=== PATIENT | female | born 1965 | race Caucasian/White ===

== ENCOUNTER → 2018-02-11 15:36 | Outpatient (CLI) | payer BC, SELFPAY ==
--- NOTE | 2018-02-11 15:40 | MM_ITS ---
MM Dig screening mamm BI w/CAD CAD Screening COMPARISON: Digital mammograms with CAD 02/03/2017 INDICATION: There is a history of breast cancer patient's mother diagnosed at age 50. TECHNIQUE: Standard CC and MLO images were obtained. R2 CAD reviewed. FINDINGS: Prominent diffuse somewhat heterogenic fibroglandular densities are seen throughout both breasts. There is a mole marker right breast. There is no suspicious lesion and there are no suspicious microcalcifications. IMPRESSION: Stable exam no suspicious lesion seen recommend yearly follow-up BI-RADS Category: 1 Negative RECOMMENDED FOLLOW-UP: 1YR - 1 YEAR FOLLOW-UP (A letter has been sent to the patient regarding results of the study.)
== END ==
PROVIDERS: Family Provider Family Medicine; PCP Family Medicine; Visit Provider Family Medicine
DX: Z12.31 Encounter for screening mammogram for malignant neoplasm of breast (principal)
CPT/HCPCS: 77067

== ENCOUNTER → 2019-03-14 15:33 | Outpatient (CLI) | payer BC, SELFPAY ==
--- NOTE | 2019-03-14 15:40 | MM_ITS ---
PROCEDURE: MM DIG SCREENING MAMM BI W/CAD Patient Age:54Y CLINICAL INDICATION: SCREENING 54-year-old No hormones no new complaints. Family history mother with breast cancer: Age 50 COMPARISON: [facility] DIG MAMM-SCREEN [facility] from 02/22/2013 [facility] DIG MAMM-SCREEN [facility] from 03/01/2014 [facility] DIG MAMM-SCREEN [facility] from 03/06/2015 [facility] DIG MAMM-SCREEN [place] W/CAD from 02/03/2017 [facility] MM Dig screening mamm BI w/CAD from 02/11/2018 TECHNIQUE: Standard CC and MLO images were obtained. R2 CAD reviewed. Additional axillary CC views bilaterally included FINDINGS: overall moderate dense heterogeneous breast pattern, with the more pronounced, fairly dense breast tissue is seen towards upper-outer quadrant of both breast. Mammography is of decreased sensitivity in these areas of denser breast tissue but we see no significant new findings when compared to prior studies. No dominant nor suspicious. Mass lesion. No suspicious calcifications. No significant change Bilateral follow-up 1 year recommended IMPRESSION: Stable mammogram. No new areas of significant concern. Bilateral follow-up 1 year recommended. Moderately dense heterogeneous breast BI-RAD Category: 2 Benign Finding(s) FOLLOW-UP: 1YR 1 Year Follow-up (A letter has been sent to the patient regarding results of the study.) Dictated by: Nadine Coelho 03/14/2019 16:25 Electronically signed by Jg Villavicencio MD in [place] 03/17/2019 09:49
== END ==
PROVIDERS: PCP Family Medicine; Referring Provider Family Medicine; Visit Provider Family Medicine
DX: Z12.31 Encounter for screening mammogram for malignant neoplasm of breast (principal)
CPT/HCPCS: 77067

== ENCOUNTER → 2020-03-22 15:33 | Outpatient (CLI) | payer BC, SELFPAY ==
--- NOTE | 2020-03-22 15:36 | MM_ITS ---
PROCEDURE: MM DIG SCREENING MAMM BI W/CAD Digital Breast Tomosynthesis Included CLINICAL INDICATION: SCREENING There is a history of breast cancer patient's mother diagnosed at age 50. COMPARISON: MG [facility] DIG MAMM-SCREEN [facility] W/CAD from 02/03/2017 MG [facility] MM Dig screening mamm BI w/CAD from 02/11/2018 MG MM DIG SCREENING MAMM BI W/CAD from 03/14/2019 TECHNIQUE: Standard CC and MLO images and 3D Tomosynthesis was obtained. R2 CAD reviewed. FINDINGS: Moderate diffuse fibroglandular densities are seen in the central portions and upper outer quadrants of both breasts. Findings are bilateral and symmetrical. There is a tiny benign-appearing nodular density deep to the nipple left breast and only definitely seen with kadeem images on the CC projection. There is no suspicious lesion and no suspicious microcalcifications. IMPRESSION: Moderate diffuse breast density with no suspicious lesions seen BI-RAD Category: 2 Benign Finding(s) FOLLOW-UP: 1YR 1 Year Follow-up (A letter has been sent to the patient regarding results of the study.) Dictated by: Dr. Amarjit Burgess MD 03/23/2020 12:19 Dr. Amarjit Burgess MD in [place] 03/23/2020 12:19
--- NOTE | 2020-03-22 15:36 | US_ITS ---
PROCEDURE: US THYROID CLINICAL INDICATION: THYROID NODULE Right-sided thyroid nodule on physical exam COMPARISON: No exams were available for comparison FINDINGS: The right lobe is 3.8 x 1.2 x 0.9 cm. No nodules are evident. Homogeneous echogenicity. The left lobe is 2.9 x 1 x 1.1 cm. There is a 5 mm isoechoic nodule in the upper pole well-circumscribed wider than tall without calcifications IMPRESSION: 5 mm left thyroid nodule , TR level 3 less than 2.5 cm. Recommend six-month follow-up. Dictated by: Kavon Marcos MD 03/22/2020 18:16 Kavon Marcos MD in [place] 03/22/2020 18:16
== END ==
PROVIDERS: PCP Family Medicine; Visit Provider Family Medicine
DX: Z12.31 Encounter for screening mammogram for malignant neoplasm of breast (principal); E04.1 Nontoxic single thyroid nodule
CPT/HCPCS: 76536; 77063; 77067

== ENCOUNTER 2020-07-15 16:21 | Emergency (ER) | payer BC, SELFPAY ==
[2020-07-15 17:05] VITALS: BP 126/79; PULSE 68; RESP 19; TEMP 36.6; O2SAT 99; BMI 27.3
--- NOTE | 2020-07-15 17:46 | HMH.EDUTC ---
[facility] [place] Clinical Impression: Encounter for laboratory testing for COVID-19 virus Disposition: Home, Self-Care Condition on Discharge: Good Instructions: DI for COVID-19 (Suspected or Confirmed ), Coronavirus Disease 2019, Preventing the Spread of Coronavirus Discharge Instructions Additional Instructions: *Monitor Temp, Over the counter Motrin or Tylenol as directed/as needed Tylenol every 4 hours and Motrin every 6 hours (as long as your family doctor has told you that you can take it) for fever or pain. and straight to ER if unable to lower temp less than 101.0 after medication given Follow up IMMEDIATELY for new or worsening symptoms or no Noticeable improvement over the next 48-72 hours. 911 for difficulty breathing or swallowing You were tested for today for COVID19 your test result should be back in the next 24-48 hours, you may call to the [facility] to see if your test results are back in the next 48 hours [phone] [facility] hours are 9am-9pm You was given a handout with instructions for Self Quarantine and Self isolation for while you wait on test results and what to do if they are positive If you are positive the Health Dept will be contacting you also Referrals: Pro Boyd MD [Primary Care Provider] - As needed Forms: Work/School Release Time of Disposition: 17:47 Medical Decision Making - Ervin Inquiry Pt receiving controlled substance: No Ervin was queried for this patient: No Vital Signs: 07/15/20 17:05 Temperature 97.8 F Temperature Source Oral Pulse Rate [Right Brachial] 68 Respiratory Rate 19 Blood Pressure [Right Arm] 126/79 Blood Pressure Mean [Right Arm] 94 Blood Pressure Source [Right Arm] Automatic Cuff Blood Pressure Position [Right Arm] Sitting 02 Sat by Pulse Oximetry 99 Oxygen Delivery Method Room Air Orders (Tests/Meds): ORDERS Category Date Time Status Covid-19 Nasal PCR ([facility]) Routine Lab 07/15/20 17:06 Received [facility] [place] HPI - General Stated complaint: covid test Time Seen by Provider: 07/15/20 17:46 Mode of Arrival: Ambulatory Source of Information: Patient Limitations: No Limitations Description of Symptoms (Recalled from Triage Doc. by RN): COVID TEST D/T EXPOSURE; PATIENT C/O WEIRD TASTE IN MOUTH HEENT Symptoms (Recalled from RN notes): Yes Resp Symptoms (Recalled from RN notes): No Skin Symptoms (Recalled from RN notes): No MS Symptoms (Recalled from RN notes): No Functional Status (Recalled from RN notes): WNL - History of Present Illness Provider Complaint: Patient state that she has had a salty metalic taste on and off for a couple of weeks States that today her coworker called and told her that she tested positive for COVID so she came in to get tested Denies any other symptoms - Related Data Home Medications Medication Instructions Recorded Confirmed atorvastatin 10 mg tablet 10 mg PO DAILY 01/07/18 07/15/20 Allergies Allergy/AdvReac Type Severity Reaction Status Date / Time Penicillins Allergy Intermediate I-RASH Verified 06/21/19 07:28 - Worker's Comp Is this a Worker's Comp case?: No [facility] History - Hepatitis A Screen Drug use history?: No High risk sexual behaviors?: No History of sexually transmitted infection?: No Currently employed?: No Childcare worker?: No Do you have indoor plumbing?: Yes Do you have electricity?: Yes Attestation statement:: This patient has been screened for Hepatitis A risk factors. I have reviewed the patient's past medical history: Yes Medical History: Reports:: Hyperlipidemia Denies:: Cancer, Diabetes Mellitus Type 1, Diabetes Mellitus Type 2, Internal Pacemaker, MRSA, Seizures Other Surgeries: Yes: Colonoscopy, Other. No: Pacemaker Amputation: No Fractures: No Comment: wisdom teeth, bladder scope - Social History Smoking Status: Never smoker Alcohol Intake: never Substance Use Type: denies use Occupational Status: employed Housing: house Household Members: spouse Family Hx::
[2020-07-15 17:50] VITALS: BP 126/79; PULSE 68; RESP 19; TEMP 36.6; O2SAT 99
== END 2020-07-15 17:52 | disposition home or self-care (01) ==
PROVIDERS: Emergency Provider Nurse Practitioner; PCP Family Medicine
DX: Z20.822 Contact with and (suspected) exposure to COVID-19 (principal)
CPT/HCPCS: 99202; G0463; U0003

== ENCOUNTER → 2020-07-27 15:03 | Outpatient (CLI) | payer BC, SELFPAY ==
--- NOTE | 2020-07-27 15:08 | US_ITS ---
PROCEDURE: US THYROID CLINICAL INDICATION: THYROID NODULE Follow up Pt feels pressure COMPARISON: US US THYROID from 03/22/2020 FINDINGS: Right lobe: 1.0cm x 3.9cm x 1.0cm Left lobe: 0.9cm x 3.2cm x 1.3cm Isthmus: 3 mm in thickness unremarkable appearance Additional findings: A 5 mm slightly hypoechoic nodule is noted in the upper pole of the left lobe of the thyroid gland unchanged. No new nodules are evident. IMPRESSION: Stable nodule in the left lobe of the thyroid gland. Annual follow-up suggested. Dictated by: Kavon Marcos MD 07/28/2020 06:46 Kavon Marcos MD in [place] 07/28/2020 06:46
== END ==
PROVIDERS: PCP Family Medicine; Visit Provider Physician Assistant
DX: E04.1 Nontoxic single thyroid nodule (principal)
CPT/HCPCS: 76536

== ENCOUNTER → 2021-01-02 11:11 | Outpatient (CLI) | payer BC, SELFPAY ==
[2021-01-02 14:46] LABS: Basophils % 0.7 % (0.1-2.0); Eosinophils # 0.2 K/mm3 (0.0-0.4); Eosinophils % 2.6 % (0.1-12.0); Hematocrit 39.9 % (37.0-47.0); Hemoglobin 13.2 g/dL (12.2-16.2); Lymphocytes # 1.1 K/mm3 (0.7-4.5); Lymphocytes % 18.6 % (10-50); Mean Corpuscular HGB Conc 33.1 g/dL (31.8-35.4); Mean Corpuscular Hemoglobin 29.4 pg (27.0-31.2); Mean Corpuscular Volume 88.8 fl (81-99); Mean Platelet Volume 9.1 fl (7.4-10.4); Monocytes # 0.4 K/mm3 (0.1-1.0); Monocytes % 7.5 % (1.7-9.3); Neutrophils % 70.6 % (37.0-80.0); Platelet Count 248 K/mm3 (142-424); Red Cell Distribution Width 14.3 % (11.5-17.5); White Blood Count 5.7 K/mm3 (4.8-10.8)
== END ==
PROVIDERS: PCP Physician Assistant; Visit Provider Physician Assistant
DX: Z20.822 Contact with and (suspected) exposure to COVID-19 (principal)
CPT/HCPCS: 36415; 85025; U0003

== ENCOUNTER → 2021-01-29 16:02 | Outpatient (POV) | payer BC, SELFPAY | PROVIDERS: Visit Provider Dermatology | DX: Z00.00 Encounter for general adult medical examination without abnormal findings (principal) ==

== ENCOUNTER → 2021-04-22 16:55 | Outpatient (CLI) | payer BC, SELFPAY ==
--- NOTE | 2021-04-22 16:59 | MM_ITS ---
PROCEDURE INFORMATION: Exam: MG Bilateral Screening 3D Mammography Exam date and time: 04/22/2021 4:59 PM Age: 56 years old Clinical indication: Encounter for screening mammogram for malignant neoplasm of breast. Family history of breast carcinoma. TECHNIQUE: Imaging protocol: Bilateral screening tomosynthesis and 2D mammography including computer-aided detection (CAD) when performed. COMPARISON: 1. MG MM DIG SCREENING MAMM BI W/CAD 03/22/2020 3:49 PM 2. MG MM DIG SCREENING MAMM BI W/CAD 03/14/2019 4:15 PM 3. MG [facility] MM Dig screening mamm BI w/CAD 02/11/2018 4:10 PM FINDINGS: MAMMOGRAPHY: Breast composition: The breasts are heterogeneously dense, which may obscure small masses. Mass: No suspicious masses. Architectural distortion: No suspicious distortion. Calcifications: No suspicious calcifications. Asymmetric density: None. Skin thickening: None. Axillary adenopathy: None. IMPRESSION: 1. No mammographic evidence of malignancy. Annual screening is recommended unless otherwise clinically indicated. 2. Given the reported risk factors coupled with the patient's breast density, a breast cancer risk assessment may prove useful for further evaluation. ASSESSMENT: BI-RADS Category 1: Negative
== END ==
PROVIDERS: PCP Physician Assistant; Visit Provider Family Medicine
DX: Z12.31 Encounter for screening mammogram for malignant neoplasm of breast (principal)
CPT/HCPCS: 77063; 77067

== ENCOUNTER → 2021-09-19 13:10 | Outpatient (CLI) | payer BC, SELFPAY ==
--- NOTE | 2021-09-19 13:24 | US_ITS ---
FINAL REPORT CLINICAL HISTORY: THYROID NODULE COMPARISON: July 27, 2020 FINDINGS: THYROID ULTRASOUND This exam was performed on September 19, 2021 and submitted for interpretation on September 24, 2021. Sonographic images of the thyroid was obtained. The right lobe of the thyroid measures 3.7 x 1.3 x 1.1 cm. The left lobe of the thyroid measures 3.4 x 1.7 x 1.3 cm. The isthmus measures 2 mm. In the right thyroid lobe there is a 3 x 2 x 1 mm anechoic nodule, TI-RADS 1. In the left thyroid lobe there is a 4 x 5 x 3 mm solid and hypoechoic TI-RADS 4 nodule that is not significantly changed from the previous exam. There is also a 4 x 2 x 2 mm cystic TI-RADS 0 nodule that has improved from the previous exam. This nodule previously measured 5 x 4 x 4 mm IMPRESSION: Stable and improved thyroid nodules as described. No new nodules are identified. No follow-up is required. Reviewed, Interpreted and Dictated by Rich Medrano III, MD Transcribed by Barb Barnes Authenticated by Rich Medrano III, MD on 09/24/2021 10:34:[address] [facility]
== END ==
PROVIDERS: PCP Physician Assistant; Visit Provider Physician Assistant
DX: E04.1 Nontoxic single thyroid nodule (principal)
CPT/HCPCS: 76536

== ENCOUNTER 2021-09-26 17:00 | Outpatient (RCR) | payer OTHER, SELFPAY | END 2021-09-26 17:05 | disposition home or self-care (01) | LOC: PT 17:00 | PROVIDERS: Visit Provider Physician Assistant | DX: M54.2 Cervicalgia (principal); M54.12 Radiculopathy, cervical region; M79.602 Pain in left arm; M79.601 Pain in right arm | CPT/HCPCS: 97010; 97012; 97014; 97035; 97110; 97163; 97164; G0283 ==

== ENCOUNTER → 2021-11-06 16:46 | Outpatient (CLI) | payer OTHER, SELFPAY ==
--- NOTE | 2021-11-06 16:49 | MR_ITS ---
PROCEDURE INFORMATION: Exam: MR Cervical Spine Without Contrast Exam date and time: 11/06/2021 4:54 PM Age: 56 years old Clinical indication: Neck pain; Additional info: Cervicalgia with radiculopathy. Bilateral hand and neck pain. Neck pain is worse on left side. Numbness in 4th-5th digits of right hand. Symptoms f6retoro. TECHNIQUE: Imaging protocol: Magnetic resonance imaging of the cervical spine without contrast. COMPARISON: None FINDINGS: Bones/joints: Unremarkable. Spinal cord: Normal signal. No cord compression. C2-C3: No significant disc disease. No significant spinal stenosis. C3-C4: The moderate left facet hypertrophy at C3-4. Mild-moderate left neural foraminal stenosis. C4-C5: No significant disc disease. No significant spinal stenosis. C5-C6: No significant disc disease. No significant spinal stenosis. C6-C7: Less than 2 mm central right paracentral disc bulge and osteophytic ridge at C6-7. Spinal canal and neural foramina patent. Small Tarlov (perineural) cysts at C6-7. Left Tarlov cyst at T1-2. C7-T1: No significant disc disease. No significant spinal stenosis. T3-T4: 2-2.5 mm central right paracentral disc bulge at T3-4. Findings incompletely visualized secondary to scan design. No evidence of spinal stenosis. Soft tissues: Unremarkable. Vasculature: Expected flow voids in the vertebral arteries. IMPRESSION: 1. At C6-7: Less than 2 mm central right paracentral disc bulge and osteophytic ridge. 2. At T3-4: 2-2.5 mm central and right paracentral disc bulge. No evidence of spinal stenosis. 3. At C3-4: Mild-moderate left neural foraminal stenosis secondary to hypertrophic facet changes. 4. Multilevel Tarlov (perineural) cysts at C6-7, T1-2.
== END ==
PROVIDERS: PCP Family Medicine; Visit Provider Orthopaedic Surgery Adult Reconstructive Orthopaedic Surgery
DX: M54.2 Cervicalgia (principal)
CPT/HCPCS: 72141; 76376

== ENCOUNTER 2022-05-06 17:30 | Outpatient (RCR) | payer OTHER, SELFPAY | END 2022-05-06 17:35 | disposition home or self-care (01) | LOC: PT 17:30 | PROVIDERS: PCP Family Medicine | DX: M50.33 Other cervical disc degeneration, cervicothoracic region (principal); G56.03 Carpal tunnel syndrome, bilateral upper limbs | CPT/HCPCS: 20560; 97010; 97012; 97014; 97035; 97110; 97112; 97140; 97163; 97164; 97530; G0283 ==

== ENCOUNTER → 2022-05-08 08:10 | Outpatient (CLI) | payer BC, SELFPAY ==
--- NOTE | 2022-05-08 08:17 | MM_ITS ---
PROCEDURE INFORMATION: Exam: MG Bilateral Screening 3D Mammography Exam date and time: 05/08/2022 8:13 AM Age: 57 years old Clinical indication: Screening examination TECHNIQUE: Imaging protocol: Bilateral Screening tomosynthesis and 2D mammography including computer-aided detection (CAD) when performed. COMPARISON: 1. MG MM DIG SCREENING MAMM BI W/CAD 04/22/2021 4:56 PM 2. MG MM DIG SCREENING MAMM BI W/CAD 03/22/2020 3:49 PM FINDINGS: MAMMOGRAPHY: Breast composition: The breasts are heterogeneously dense, which may obscure small masses. Mass: None. Architectural distortion: None. Calcifications: No suspicious calcifications. Asymmetric density: None. Skin thickening: None. Axillary adenopathy: None. IMPRESSION: No mammographic evidence of malignancy. Annual screening is recommended unless otherwise clinically indicated. ASSESSMENT: BI-RADS Category 1: Negative
== END ==
PROVIDERS: PCP Family Medicine; Visit Provider Physician Assistant
DX: Z12.31 Encounter for screening mammogram for malignant neoplasm of breast (principal)
CPT/HCPCS: 77063; 77067

== ENCOUNTER → 2023-04-02 08:12 | Outpatient (CLI) | payer BC, SELFPAY ==
--- NOTE | 2023-04-02 | CA_ITS ---
APPROVED REPORT Exam: Exercise Treadmill Technologist: Fara Maria, Ht: 5 ft 0 in Wt: 125 lbs BSA: 1.53 m2 HR: 79 bpm BP: 158/90 mmHg Rhythm: NSR Medical History Medications: Atorvastatin,,,,, PEntOsan Polysulfate sodium,,,,, Stress Test Details Test: Александр HR Resting HR: 87 bpm Max Heart Rate (APMHR): 163 bpm Max HR Achieved: 164 bpm Target HR (85% APMHR): 139 bpm % of APMHR: 101 Recovery HR: 90 bpm HR response to stress: Normal HR response to stress BP Resting BP: 149.0/94 mmHg Max BP: 175/94 mmHg Recovery BP: 158.0/94.0 mmHg BP response to stress: Normal blood pressure response to stress. ECG Resting ECG: NSR Stress ECG: < 0.[address] depression Arrhythmia: None Recovery ECG: Return to baseline within 3 minutes of recovery Recovery Arrhythmia: None Clinical Exercise duration: 07:14 min Highest Stage Achieved: III Exercise capacity: 10.1 METs Overall Exercise Capacity for Age: Average Stress ECG Conclusion The patient was able to exercise for a total of 7 minutes, 14 seconds. She achieved a total of 10.1 METS. She has average exercise capacity compared to age and sex matched peers. She has normal HR and BP response to exercise. Max HR: 164 % of PM: 101% Max BP: 175/94 METs: 10.1 Test stopped due to: SOA, Fatigue Symptoms: No CP. Arrhythmias/Ectopy: None ST-T Changes: Normal ST response to exercise. Conclusion: Average exercise capacity. Normal GXT. GXT only. Test Summary REST . . . . . . . Sitting REST . . . . . . . Standing REST 04:14 0.0 0.0 87 . 149/ 94 . . Stage 1 01:00 10.0 1.7 108 . . . . Stage 1 02:00 10.0 1.7 123 . . . . Stage 1 03:00 10.0 1.7 126 . 164/ 82 . . Stage 2 01:00 12.0 2.5 133 . . . . Stage 2 02:00 12.0 2.5 145 . 164/ 80 . . Stage 2 03:00 12.0 2.5 148 . 164/ 80 . . Stage 3 01:00 14.0 3.4 161 . . . . Stage 3 01:14 14.0 3.4 164 . . . Stop exercise at 07:14 RECOVERY 01:00 0.0 0.0 141 . . . . RECOVERY 02:00 0.0 0.0 106 . 175/ 94 . . RECOVERY 03:00 0.0 0.0 98 . 175/ 94 . . RECOVERY 04:00 0.0 0.0 99 . 169/ 89 . . RECOVERY 05:00 0.0 0.0 89 . 158/ 94 . . RECOVERY 05:30 0.0 0.0 90 . 158/ 94 . . Electronically signed by : Park Leon MD 04/20/2023 13:16:21
== END ==
PROVIDERS: PCP Family Medicine; Visit Provider Family Medicine
DX: R07.9 Chest pain, unspecified (principal); R06.02 Shortness of breath; R53.83 Other fatigue
CPT/HCPCS: 93017

== ENCOUNTER → 2023-04-24 11:49 | Outpatient (CLI) | payer BC, SELFPAY | PROVIDERS: PCP Family Medicine; Visit Provider Family Medicine | DX: R00.2 Palpitations (principal) | CPT/HCPCS: 93225 ==

== ENCOUNTER → 2023-05-08 07:45 | Outpatient (CLI) | payer BC, SELFPAY ==
--- NOTE | 2023-05-08 07:49 | FL_ITS ---
FINAL REPORT CLINICAL HISTORY: . esophageal dysphagia FINDINGS: BARIUM SWALLOW HISTORY: Esophageal dysphagia. TECHNIQUE: The patient ingested barium contrast. Spot films were performed. A total of 25 images were saved. FINDINGS: The esophagus is unremarkable. No mucosal defects are seen. There is very mild esophageal dysmotility. No changes of esophagitis are evident. There is gastroesophageal reflux to the thoracic inlet. 13 mm barium tablet passes easily through the esoophagus and into the stomach. FLUOROSCOPY TIME: 0.56 minutes Radiation exposure in Total DAP: 442.83 uGym2 IMPRESSION: Very mild esophageal dysmotility. Gastroesophageal reflux. Otherwise, unremarkable barium swallow. Reviewed, Interpreted and Dictated by Roldan Austin MD Transcribed by Larissa Gates PA-C Authenticated and [facility]
== END ==
PROVIDERS: PCP Family Medicine; Visit Provider Family Medicine
DX: R13.19 Other dysphagia (principal)
CPT/HCPCS: 74220

== ENCOUNTER → 2023-05-15 13:41 | Outpatient (CLI) | payer BC, SELFPAY ==
--- NOTE | 2023-05-15 13:48 | MM_ITS ---
PROCEDURE INFORMATION: Exam: MG Bilateral Screening 3D Mammography Exam date and time: 05/15/2023 1:39 PM Age: 58 years old Clinical indication: Screening mammogram TECHNIQUE: Imaging protocol: Bilateral Screening tomosynthesis and 2D mammography including computer-aided detection (CAD) when performed. COMPARISON: 1. MG MM DIG SCREENING MAMM BI W/CAD 05/08/2022 8:13 AM 2. MG MM DIG SCREENING MAMM BI W/CAD 04/22/2021 4:56 PM 3. MG MM DIG SCREENING MAMM BI W/CAD 03/22/2020 3:49 PM 4. MG MM DIG SCREENING MAMM BI W/CAD 03/14/2019 4:15 PM FINDINGS: MAMMOGRAPHY: Breast composition: There are scattered areas of fibroglandular density. Mass: None. Architectural distortion: No new or suspicious architectural distortion. Calcifications: No new or suspicious calcifications are present Asymmetric density: No new or suspicious asymmetric density is present Skin thickening: None. Axillary adenopathy: None. IMPRESSION: No mammographic evidence of malignancy. Recommend annual screening mammography unless otherwise clinically indicated. ASSESSMENT: BI-RADS category 1: Negative
== END ==
PROVIDERS: PCP Family Medicine; Visit Provider Family Medicine
DX: N60.19 Diffuse cystic mastopathy of unspecified breast (principal)
CPT/HCPCS: 77063; 77067

== ENCOUNTER 2024-02-19 11:00 | Outpatient (RCR) | payer OTHER, BC, SELFPAY | END 2024-02-19 23:59 | disposition home or self-care (01) | LOC: OT 11:00 | PROVIDERS: Visit Provider Orthopaedic Surgery Adult Reconstructive Orthopaedic Surgery | DX: G56.03 Carpal tunnel syndrome, bilateral upper limbs (principal); Z98.890 Other specified postprocedural states | CPT/HCPCS: 97014; 97035; 97110; 97140; 97164; 97166; G0283 ==

== ENCOUNTER 2024-09-12 16:45 | Outpatient (CLI) | payer BC, SELFPAY ==
--- NOTE | 2024-09-12 16:47 | MM_ITS ---
PROCEDURE INFORMATION: Exam: MG Bilateral Screening 3D Mammography Exam date and time: 09/12/2024 4:58 PM Age: 59 years old Clinical indication: Screening examination. Her mother had breast cancer at age 50. TECHNIQUE: Imaging protocol: Bilateral Screening tomosynthesis and 2D mammography including computer-aided detection (CAD) when performed. COMPARISON: 1. MG MM DIG SCREENING MAMM BI W/CAD 05/15/2023 1:39 PM 2. MG MM DIG SCREENING MAMM BI W/CAD 05/08/2022 8:13 AM 3. MG MM DIG SCREENING MAMM BI W/CAD 04/22/2021 4:56 PM 4. MG MM DIG SCREENING MAMM BI W/CAD 03/22/2020 3:49 PM FINDINGS: MAMMOGRAPHY: Breast composition: There are scattered areas of fibroglandular density. Mass: None. Architectural distortion: None. Calcifications: No suspicious calcifications. Asymmetric density: None. Skin thickening: None. Axillary adenopathy: None. IMPRESSION: No mammographic evidence of malignancy. Annual screening is recommended unless otherwise clinically indicated. ASSESSMENT: BI-RADS Category 1: Negative.
== END 2024-09-12 23:59 | disposition home or self-care (01) ==
LOC: RAD 16:46
PROVIDERS: PCP Family Medicine; Visit Provider Family Medicine
DX: Z12.31 Encounter for screening mammogram for malignant neoplasm of breast (principal)
CPT/HCPCS: 77063; 77067

== ENCOUNTER 2025-03-29 14:14 | Outpatient (CLI) | payer BC, SELFPAY ==
--- OUTSIDE RECORDS SUMMARY | 2023-10-16 04:15 | XMS_ITS ---
Author Organization [facility] Address [address] [place] [id number] Care Team Providers Care Blueprint Tracer Name Role Phone Kaylene Boyd Primary Care Provider [phone] JacySadiaJoselyn Unavailable [phone] Results Component Value Reference Range Notes P-Comprehensive Metabolic Pa donte (CMP) Reviewed date:10/21/2023 12:44:11 PM Interpretation:satisfactory Performing Lab: Notes/Report: CLIA: [id number] Kishor Pratt MD, Remote Sensing Technologist [facility] , [address], [place] [address] Test performed by [employer], [facility] Sodium 143 135-145 mEq/L Potassium 4.3 3.5-5.3 mEq/L Chloride 108 97-108 mEq/L CO2 23 22-32 mEq/L Glucose 103 65-99 mg/dL BUN 12 6-20 mg/dL Creatinine 0.74 0.50-1.00 mg/dL Calcium 9.4 8.6-10.4 mg/dL eGFR by Creatinine 94 >59 mL/min/1.73m2 Protein 6.6 6.0-8.3 g/dL Albumin 4.5 3.5-5.3 g/dL Alkaline Phosphatase 102 35-121 IU/L ALT (SGPT) 19 <5-47 IU/L AST (SGOT) 17 <5-40 IU/L Bilirubin, Total 0.5 <0.2-1.2 mg/dL A/G Ratio 2.1 1.1-2.5 mg/dL P-Lipid Panel Reviewed date:10/21/2023 12:44:19 PM Interpretation:Normal Performing Lab: Notes/Report: Test performed by [employer], [employer] [address] [facility] , [address], [place] [address] Kishor Pratt MD, Remote Sensing Technologist RAIZA: [id number] Cholesterol 198 <200 mg/dL Triglycerides 100 <150 mg/dL HDL Cholesterol 96 >39 mg/dL Cholesterol / HDL Ratio 2.06 0.00-4.44 Ratio Non-HDL Cholesterol 102 <130 mg/dL LDL Cholesterol (Calculation) 82 <130 mg/dL LDL Cholesterol Levels* Less than 100 mg/dL Optimal 100 to 129 mg/dL Near Optimal/ Above Optimal 130 to 159 mg/dL Borderline High 160 to 189 mg/dL High 190 mg/dL and above Very High * Categories as recommended by the 2004 ATPIII guidelines LDL/HDL Ratio 0.9 <3.3 Ratio LDL Cholesterol Patient History Test Date: 10/16/2023 LDL Results: 82 Units: mg/dL % Change: - REASON FOR VISIT labs Medications Medication SIG (Take, Route, Frequency, Duration) Notes Start Date End Date Status Vitamin D3 50 MCG (1999 UT) 1 tab(s) orally once a day 07/25/2016 Not-Taking Mucinex 600 MG 1 tab(s) orally every 12 hours Pt takes 2 tablets Not-Taking Biotin 5 MG 1 tab(s) orally once a day Not-Taking Atorvastatin Calcium 20 MG ALTERNATE TAKING 20/40 MG TABLET BY MOUTH AT BEDTIME; Duration: 90 days Active hydroCHLOROthiazide 12.5 MG 1 tablet in the morning Orally Once a day; Duration: 90 days 07/27/2023 Active Mometasone Furoate 0.1 % 1 application Externally Once a day 07/27/2023 Active Metoclopramide HCl 5 MG 1/2 Orally three times a day as needed; Duration: 30 day(s) 05/21/2023 Active Omeprazole 40 MG 1 cap(s) orally once a day; Duration: 30 day(s) 06/29/2020 Active CoQ10 100 MG orally once a day Active Losartan Potassium 25 MG 1 tablet Orally Once a day; Duration: 90 days 05/21/2023 Active Multivitamin - 1 tablet Orally Once a day; Duration: 30 day(s) Active Problems Problem Type SNOMED Code ICD Code Onset Dates Problem Status W/U Status Risk Notes Problem Hyperlipidemia (83553311) Hyperlipidemia (E78.5) Active confirmed Encounters Encounter Location Date Provider Diagnosis [facility] [address] [facility] [address] [facility] [address] [place] [phone] 10/16/2023 Kaylene Boyd Hyperlipidemia E78.5 and Essential hypertension I10 Assessments Encounter Date Diagnosis (ICD Code) Assessment Notes Treatment Notes Treatment Clinical Notes Section Notes 10/16/2023 Hyperlipidemia (ICD-10 - E78.5) 10/16/2023 Essential hypertension (ICD-10 - I10) Plan Of Treatment Next Appt Details Provider Name:Kaylene Raymond er, 05/29/2025 09:30:00 AM, [facility], [address], [place], [place], [phone], Progress Notes * DELORES QUIÑONEZOB:[birth year] (60 yo F)Acc No.[id number]:10/16/2023 Patient: DELORES CARDONA Provider: Kaylene Boyd M.D. :1965 A ge:58 Y S ex:Female Date:10/16/2023 Address:[address] [place] [address] [address] [place], [id number] Subjective: * Chief Complaints: * 1 . Labs. * Medical History: * Medications: T aking Multivitamin - Tablet 1 tablet Orally Once a day , Taking CoQ10 100 MG Capsule orally once a day , Taking Omeprazole 40 MG Capsule Delayed Release 1 cap(s) orally once a day , Taking Metoclopramide HCl 5 MG Tablet 1/2 Orally three times a day as needed , Taking Mometasone Furoate 0.1 % Cream 1 application Externally Once a day , Taking Losartan Potassium 25 MG Tablet 1 tablet Orally Once a day , Taking hydroCHLOROthiazide 12.5 MG Tablet 1 tablet in the morning Orally Once a day , Taking Atorvastatin Calcium 20 MG Tablet ALTERNATE TAKING 20/40 MG TABLET BY MOUTH AT BEDTIME , Not-Taking Biotin 5 MG Tablet Disintegrating 1 tab(s) orally once a day , Not-Taking Mucinex 600 MG Tablet Extended Release 12 Hour 1 tab(s) orally every 12 hours , Notes to Pharmacist: Pt takes 2 tablets, Not-Taking Vitamin D3 50 MCG (2000 UT) Tablet 1 tab(s) orally once a day , Medication List reviewed and reconciled with the patient Objective: * Vitals: Assessment: * Assessment: 1. H yperlipidemia - E78.5 2 . E ssential hypertension - I10 ? Plan: * Treatment: Value Reference Range C holesterol / HDL Ratio 2.06 0.00-4.44 - Ratio * C holesterol 198 <200 - mg/dL * H DL Cholesterol 96 >39 - mg/dL * L DL Cholesterol (Calculation) 82 <130 - mg/d L * L DL/HDL Ratio 0.9 <3.3 - Ratio * N on-HDL Cholesterol 102 <130 - mg/dL * T riglycerides 100 <150 - mg/dL * Cami Cooley 10/21/2023 12: 43:01 PM >Patient informed of normal results. 2.?Essential hypertension?LAB: P-Comprehensive Metabolic Panel (CMP) (Collection Date & Time - 10/16/2023 09:20 AM)?satisfactory* Value Reference Range A /G Ratio 2.1 1.1-2.5 - mg/dL * A lbumin 4.5 3.5-5.3 - g/dL * A lkaline Phosphatase 102 35-121 - IU/L * A LT (SGPT) 19 <5-47 - IU/L * A ST (SGOT) 17 <5-40 - IU/L * B ilirubin, Total 0.5 <0.2-1.2 - mg/dL * B UN 12 6-20 - mg/dL * C alcium 9.4 8.6-10.4 - mg/dL * C hloride 108 97-108 - mEq/L * C O2 23 22-32 - mEq/L * C reatinine 0.74 0.50-1.00 - mg/dL * G lucose 103 H 65-99 - mg/dL * P otassium 4.3 3.5-5.3 - mEq/L * S odium 143 135-145 - mEq/L * P rotein 6.6 6.0-8.3 - g/dL * e GFR by Creatinine 94 >59 - mL/min/1.73m2 * Cami Cooley 10/21/2023 12: 43:01 PM >Patient informed of normal results. * Images: Billing Information: * Visit Code: * Procedure Codes: * Electronic signature of Kaylene Boyd MD on 03/29/2025 at 02:16 PM EST Sign off status: Pending * Provider: Kaylene Boyd M.D. Date: 0 10/16/2023 Generated for Tyler espinoza/Venus/Haseeb on: 05/29/2024 02:16 PM EST
--- OUTSIDE RECORDS SUMMARY | 2024-03-17 09:00 | XMS_ITS ---
Author Organization [facility] Address [address] [place] [phone] Care Team Providers Care Customer Success Specialist Name Role Phone Kaylene Boyd Primary Care Provider [phone] Joselyn Louie Unavailable [phone] Allergies Allergen (clinical drug ingredient) Drug/Non Drug Allergy documented on EMR Reaction Allergy Type Onset Date Status ciprofloxacin Cipro kidney rupture Drug Allergy Active cefuroxime Cefuroxime Dyspepsia Drug Allergy Activ e Penicillin Unknown Drug Allergy Active REASON FOR VISIT 4 month check, Needs labs Medications Medication SIG (Take, Route, Frequency, Duration) Notes Start Date End Date Status Vitamin D3 50 MCG (1999) 1 tab(s) orally once a day 07/25/2016 Not-Taking Mucinex 600 MG 1 tab(s) orally every 12 hours Pt takes 2 tablets Not-Taking Biotin 5 MG 1 tab(s) orally once a day Not-Taking Losartan Potassium 25 MG 1 tablet Orally Once a day; Duration: 90 days 05/21/2023 Active hydroCHLOROthiazide 12.5 MG 1 tablet in the morning Orally Once a day; Duration: 90 days 07/27/2023 Active Atorvastatin Calcium 20 MG ALTERNATE TAKING 20/40 MG TABLET BY MOUTH AT BEDTIME; Duration: 90 days Active Mometasone Furoate 0.1 % 1 application Externally Once a day 07/27/2023 Active Metoclopramide HCl 5 MG 1/2 Orally three times a day as needed; Duration: 30 day(s) 05/21/2023 Active Omeprazole 40 MG 1 cap(s) orally once a day; Duration: 30 day(s) 06/29/2020 Active CoQ10 100 MG orally once a day Active Multivitamin - 1 tablet Orally Once a day; Duration: 30 day(s) Active Immunizations Vaccine Route Administration Date Status Comme geoff Gomez (6months&older) IM Intramuscular 03/17/2024 Administered Vital Signs Blood pressure systolic 130 mm Hg 03/17/20 Blood pressure diastolic 82 mm Hg 024 Heart Rate 72 /min 03/17/2024 Height 59 in 03/17/2024 Weight 143.0 lbs 03/17/2024 BMI 28.88 kg/m2 03/17/2024 Encounters Encounter Location Date Provider Diagnosis [facility] [address] [facility] 36 [facility] [address] [place] [phone] 03/17/2024 Kaylene Boyd Encounter for immunization Z23 ; Essential hypertension I10 and Hyperlipidemia E78.5 Assessments Encounter Date Diagnosis (ICD Code) Assessment Notes Treatment Notes Treatment Clinical Notes Section Notes 03/17/2024 Encounter for immunization (ICD-10 - Z23) 03/17/2024 Essential hypertension (ICD-10 - I10) 03/17/2024 Hyperlipidemia (ICD-10 - E78.5) Plan Of Treatment Next Appt Details Follow Up: 4 Months fasting, Reason: Provider Name:Kaylene Raymond er, 05/29/2025 09:30:00 AM, [address] [facility] 36 [facility], [address], [place], [phone], Progress Notes * DELORES OHDIOMEDESOB:[birth year] (60 yo F)Acc No.[id number]:03/17/2024 Progress Notes Patient: DELORES CARDONA Provider: Kaylene Boyd M.D. :1965 A ge:59 Y S ex:Female Date:03/17/2024 Address:[facility] [address] [id number] Subjective: * Chief Complaints: * 1 . 4 month check. 2. Needs labs. * HPI: C ardiology: The patient is here for a check up on Hypertension and Hyperlipidemia. Pt states she is doing good and denies any new concerns. Pt states she is still having some swelling in her legs. Pt states she is needing refills sent to [facility] in [place]. 59 year old female presents with c/o Short of Breath. c/o Palpitations. Denies : Chest Pain. D enies : Dizziness. * ROS: D ERMATOLOGY: no R rudy. n o H summer. G ASTROENTEROLOGY: no N ausea. n o V omiting. n o D iarrhea.? U ROLOGY: no D ifficulty urinating. n o B lood in urine. * Medical History: H ypercholestrolemia, Interstitial cystitis. * Surgical History: u rethral dilitation , wisdom teeth removed , colonoscopy 01/2010, urethral dialation , Right Hand Carpal Tunnel Release - Dr. Chou 09/25/23, COLONOSCOPY, DR. BHARDWAJ 06/21/2019, Left hand caarpal tunnel release 10/2023. * Hospitalization/Major Diagno stic Procedure: s ee above , [facility] ER- Right leg pain 09/11/12. * Family History: F ather: 78 yrs, diagnosed with Hypertension, Heart Disease, Cancer. M other: 74 yrs, diagnosed with Heart Disease, Stroke, Cancer, Hypertension. S iblings: alive, hypertension. 1 sister(s) . . Father COPD. * Social History: C URRENT TOBACCO USE S moking Status: Patient does NOT smoke. C affeine: yes, frequency:daily. Exercise: no. Home smoke detector use: yes. Marital Status: . Occupation: realtor. Past smoking status: no, Smoking status: Does not smoke. Recreational drug use: no. Alcohol: no. Sexually active: yes. Travel ouside [place]: no. * Medications: T aking Multivitamin - Tablet [...] application Externally Once a day , Taking Atorvastatin Calcium 20 MG Tablet ALTERNATE TAKING 20/40 MG TABLET BY MOUTH AT BEDTIME , Taking hydroCHLOROthiazide 12.5 MG Tablet 1 tablet in the morning Orally Once a day , Taking Losartan Potassium 25 MG Tablet 1 tablet Orally Once a day , Not-Taking Biotin 5 MG Tablet Disintegrating 1 tab(s) orally once a day , Not- Taking Mucinex 600 MG Tablet Extended Release 12 Hour 1 tab(s) orally every 12 hours , Notes to Pharmacist: Pt takes 2 tablets, Not-Taking Vitamin D3 50 MCG (1999 UT) Tablet 1 tab(s) orally once a day , Medication List reviewed and reconciled with the patient * Allergies: P enicillin, Cefuroxime: Dyspepsia, Cipro: kidney rupture. Objective: * Vitals: W t:143.0, Temp:98.3, BP:130/82, HR:72, Nurse:GENESIS, Ht: 59, BMI:28.88. * Examination: G eneral Examination: General Appearance: N AD. H EENT: u nremarkable.?Oral cavity: n o lesions, mucosa moist and WNL, no erythema. N nicole: s upple, no lymphadenopathy. C hest: n ormal shape and expansion. H eart: R SR. L ungs: c lear to auscultation. A bdomen: soft and nontender. N eurologic Exam: I ntact, gait normal. thenar wasting noted on right.. S kin: n ormal, no rash. P eripheral pulses: n ormal . E xtremities: n o leg edema. Assessment: * Assessment: 1. E ssential hypertension - I10 (Primary) 2 . E ncounter for immunization - Z23 3 . H yperlipidemia - E78.5 Plan: * Treatment: * Immunizations: Fluzone Quad (6months&older) : 0.5 mL (Route: Intramuscular) given by Cami Cooley on Right Deltoid (Encounter for immunization) * Follow Up: 4 Months fasting * Images: Billing Information: * Visit Code: 52860 Office Visit, Est Pt., Level 4. * Procedure Codes: * Electronic signature of Kaylene Boyd MD on 03/29/2025 at 02:16 PM EST Sign off status: Pending * Provider: Kaylene Boyd M.D. Date: Generated for Adamsi olga/Venus/eTransmitting on: 05/29/2024 02:16 PM EST History and Physical Notes * HPI (History of Present Illness) Category Sub-Category Detail Notes Category Not es Cardiology Short of Breath Chest Pain Palpitations Dizziness Examination Category Sub-Category Detail Notes Category Not es General Examination HEENT: unremarkable Heart: RSR Lungs: clear to auscultatio n Abdomen: soft and nontender Extremities: no leg edema General Appearance: NAD Skin: normal, no rash Neurologic Exam: Intact, gait normal. thenar wasting noted on right. Neck: supple, no lymphaden opathy Oral cavity: no lesions, mucosa m oist and WNL, no erythema Peripheral pulses: normal Chest: normal shape and exp ansion
--- OUTSIDE RECORDS SUMMARY | 2024-05-26 04:15 | XMS_ITS ---
Author Organization [facility] Address [address] [facility] 36 [facility] [address] [place] [phone] Care Team Providers Care Profile Saw Operator Name Role Phone Kaylene Boyd Primary Care Provider [phone] Joselyn Louie Unavailable [phone] Marilyn Sorensen Unavailable [phone] REASON FOR VISIT cough, congestion Encounters Encounter Location Date Provider Diagnosis [facility] [address] [facility] 36 [facility] [address] [place] [phone] 05/26/2024 Marilyn Sorensen Plan Of Treatment Next Appt Details Provider Name:Kaylene Raymond er, 05/29/2025 09:30:00 AM, [address] [facility] 36 [facility], [address], [place], [phone], Progress Notes * DELORES OHOB:[birth year] (60 yo F)Acc No.[id number]:05/26/2024 Progress Notes Patient: DELORES CARDONA Provider: Marilyn Sorensen M.D. :1965 A ge:59 Y S ex:Female Date:05/26/2024 Address:[address] [facility] [address], [id number] Pcp:Kaylene Boyd Subjective: * Chief Complaints: * 1 . Cough, congestion. * Medical History: Objective: * Vitals: Assessment: Plan: * Treatment: * Images: Billing Information: * Visit Code: * Procedure Codes: * Electronic signature of Marilyn Sorensen MD on 03/29/2025 at 02:17 PM EST Sign off status: Pending * Provider: Marilyn Sorensen M.D. Date: 0 05/26/2024 Generated for Tyler espinoza/Venus/Haseeb on: 05/29/2024 02:17 PM EST
--- OUTSIDE RECORDS SUMMARY | 2024-07-02 03:45 | XMS_ITS ---
Author Organization [facility] Address [address] [place] [phone] Care Team Providers Care Atomic Welder Name Role Phone Kaylene Boyd Primary Care Provider Joselyn Louie Unavailable [phone] Nakul Barker Unavailable [phone] Results Component Value Reference Range Notes P-Comprehensive Metabolic Pa donte (CMP) Reviewed date:07/04/2024 10:00:43 AM Interpretation: Normal Performing Lab: Notes/Report: CLIA: [id number] Kishor Pratt MD, Certified Dietary Manager [address] [place] [address] , [address], [place] [address] Test performed by [employer], [facility] Sodium 144 135-145 mmol/L Potassium 4.4 3.5-5.3 mmol/L Chloride 106 97-108 mmol/L CO2 22 22-32 mmol/L Glucose 89 65-99 mg/dL BUN 11 6-20 mg/dL Creatinine 0.68 0.50-1.00 mg/dL Calcium 9.3 8.6-10.4 mg/dL eGFR by Creatinine 101 >59 mL/min/1.73m2 Protein 7.1 6.0-8.3 g/dL Albumin 4.9 3.5-5.3 g/dL Alkaline Phosphatase 99 35-121 IU/L ALT (SGPT) 17 <5-47 IU/L AST (SGOT) 18 <5-40 IU/L Bilirubin, Total 0.4 <0.2-1.2 mg/dL A/G Ratio 2.2 1.1-2.5 P-Lipid Panel Reviewed date:07/04/2024 10:00:43 AM Interpretation:chol 207 Performing Lab: Notes/Report: Test performed by [employer], [address], [place] [address] Kishor Pratt MD, Certified Dietary Manager CLIA: [id number] Cholesterol 207 <200 mg/dL Triglycerides 67 <150 mg/dL HDL Cholesterol 103 >39 mg/dL Cholesterol / HDL Ratio 2.01 0.00-4.44 Ratio Non-HDL Cholesterol 104 <130 mg/dL LDL Cholesterol (Calculation) 91 <130 mg/dL LDL Cholesterol Levels* Less than [...] Results: 82 Units: mg/dL % Change: - Test Date: 07/02/2024 LDL Results: 91 Units: mg/dL % Change: +10% REASON FOR VISIT blood work Encounters Encounter Location Date Provider Diagnosis [facility] 36 [facility] [address] [place] [phone] 07/02/2024 Nakul Barker Essential hypertensi on I10 and Hyperlipidemia E78.5 Assessments Encounter Date Diagnosis (ICD Code) Assessment Notes Treatment Notes Treatment Clinical Notes Section Notes 07/02/2024 Essential hypertension (ICD-10 - I10) 07/02/2024 Hyperlipidemia (ICD-10 - E78.5) Plan Of Treatment Next Appt Details Provider Name:Kaylene Raymond er, 05/29/2025 09:30:00 AM, 1210 [facility] 36 [facility], [address], [place], [phone], Progress Notes * DELORES OH ARDENOB:[birth year] (60 yo F)Acc No.[id number]:07/02/2024 Patient: DELORES CARDONA Provider: Ignacio Barker M.D. :1965 A ge:59 Y S ex:Female Date:07/02/2024 Address:[address] [place] [address] [address], [place], [id number] Pcp:Kaylene Boyd Subjective: * Chief Complaints: * 1 . Blood work. * Medical History: Objective: * Vitals: Assessment: * Assessment: 1. E ssential hypertension - I10 2 . H yperlipidemia - E78.5 ? Plan: * Treatment: Value Reference Range A /G Ratio 2.2 1.1-2.5 - * A lbumin 4.9 3.5-5.3 - g/dL * A lkaline Phosphatase 99 35-121 - IU/L * A LT (SGPT) 17 <5-47 - IU/L * A ST (SGOT) 18 <5-40 - IU/L * B ilirubin, Total 0.4 <0.2-1.2 - mg/dL * B UN 11 6-20 - mg/dL * C alcium 9.3 8.6-10.4 - mg/dL * C hloride 106 97-108 - mmol/L * C O2 22 22-32 - mmol/L * C reatinine 0.68 0.50-1.00 - mg/dL * G lucose 89 65-99 - mg/dL * P otassium 4.4 3.5-5.3 - mmol/L * S odium 144 135-145 - mmol/L * P rotein 7.1 6.0-8.3 - g/dL * e GFR by Creatinine 101 >59 - mL/min/1.73m2 * Risa Napier 07/04/2024 10:00 :36 AM >See phone encounter 2.?Hyperlipidemia?LAB: P-Lipid Panel (Collection Date & Time - 07/02/2024 09:13 AM)?chol 207 * Value Reference Range C holesterol / HDL Ratio 2.01 0.00-4.44 - Ratio * C holesterol 207 H <200 - mg/dL * H DL Cholesterol 103 >39 - mg/dL * L DL Cholesterol (Calculation) 91 <130 - mg/d L * L DL/HDL Ratio 0.9 <3.3 - Ratio * N on-HDL Cholesterol 104 <130 - mg/dL * T riglycerides 67 <150 - mg/dL * Risa Napier 07/04/2024 10:00 :36 AM >See phone encounter * Images: Billing Information: * Visit Code: * Procedure Codes: * Electronic signature of Sana Barker MD on 03/29/2025 at 02:16 PM EST Sign off status: Pending * Provider: Ignacio Barker M.D. Date: 0 07/02/2024 Generated for Tyler espinoza/Venus/eTbernardasmbrian on: 1 05/29/2024 02:16 PM EST
--- OUTSIDE RECORDS SUMMARY | 2024-07-22 06:00 | XMS_ITS ---
Author Organization [facility] Address [address] [place] [id number] Care Team Providers Care Professor Of Social Work Name Role Phone Kaylene Boyd Primary Care Provider Joselyn Louie Unavailable [phone] Allergies Allergen (clinical drug ingredient) Drug/Non Drug Allergy documented on EMR Reaction Allergy Type Onset Date Status ciprofloxacin Cipro kidney rupture Drug Allergy Active cefuroxime Cefuroxime Dyspepsia Drug Allergy Activ e Penicillin Unknown Drug Allergy Active REASON FOR VISIT 4 month f/u Medications Medication SIG (Take, Route, Frequency, Duration) Notes Start Date End Date Status Losartan Potassium 25 MG 1 tablet Orally Once a day; Duration: 90 days 05/21/2023 Active Atorvastatin Calcium 40 MG 1 tablet Oral ly as directed; Duration: 30 day(s) 07/22/2024 Active Metoclopramide HCl 5 MG 1/2 Orally three times a day as needed; Duration: 30 day(s) 05/21/2023 Active Mometasone Furoate 0.1 % 1 application E xternally Once a day 07/27/2023 Active hydroCHLOROthiazide 12.5 MG 1 tablet in the morning Orally Once a day; Duration: 90 days 07/27/2023 Active Omeprazole 40 MG 1 cap(s) orally once a day; Duration: 30 day(s) 06/29/2020 Active Multivitamin - 1 tablet Orally Once a day; Duration: 30 day(s) Active CoQ10 100 MG orally once a day Active Vital Signs Blood pressure systolic 140 mm Hg 07/22/19 25 Blood pressure diastolic 80 mm Hg 025 Heart Rate 65 /min 07/22/2024 Height 59 in 07/22/2024 Weight 146.8 lbs 07/22/2024 BMI 29.65 kg/m2 07/22/2024 Encounters Encounter Location Date Provider Diagnosis [facility] [address] [facility] [address] [facility] [address] [place], [place] [id number] 07/22/2024 Kaylene Boyd Essential hypertensi on I10 ; Thyroid nodule E04.1 ; Gastroesophageal reflux disease without esophagitis K21.9 and Mixed hyperlipidemia E78.2 Assessments Encounter Date Diagnosis (ICD Code) Assessment Notes Treatment Notes Treatment Clinical Notes Section Notes 07/22/2024 Essential hypertension (ICD-10 - I10) 07/22/2024 Thyroid nodule (ICD-10 - E04.1) 07/22/2024 Gastroesophageal reflux disease without esophagitis (ICD-10 - K21.9) 07/22/2024 Mixed hyperlipidemia (ICD-10 - E78.2) 07/22/2024 Other To alternate one (40mg) with 1/2 (20mg) Plan Of Treatment Medication Medication Name Sig Start Date Stop Date Notes Atorvastatin Calcium 40 MG 1 tablet Oral ly as directed; Duration: 30 day(s) 07/22/2024 hydroCHLOROthiazide 12.5 MG 1 tablet in the morning Orally Once a day; Duration: 90 days 07/27/2023 Atorvastatin Calcium 20 MG ALTERNATE MATTHEW ING 20/40 MG TABLET BY MOUTH AT BEDTIME Treatment Notes Assessment Notes Other To alternate one (40 mg) with 1/2 (20mg) Next Appt Details Follow Up: 3 Months, Reason: Provider Name:Kaylene Raymond er, 05/29/2025 09:30:00 AM, [address] [facility] [address] [facility], [address], [place], [id number], Progress Notes * DELORES OHOB:[birth year] (60 yo F)Acc No.[id number]:07/22/2024 Progress Notes Patient: DELORES CARDONA Provider: Kaylene Boyd M.D. :1965 A ge:59 Y S ex:Female Date:07/22/2024 Address:[facility] [address] [place], [id number] Subjective: * Chief Complaints: * 1 . 4 month f/u. * HPI: C ardiology: The patient is here for a check up on Hypertension and Hyperlipidemia. Pt states she is doing good and denies any new concerns. Pt is not fasting. See pt labs for 07/04/24. She does not take the diuretic daily. Has noticed an increase in fluid. Denies : Chest Pain. D enies : Short of Breath. D enies : Dizziness. D enies : Palpitations. W rist/Hand: Hands are doing well post carpal tunnel release last year. * ROS: D ERMATOLOGY: no R rudy. [...] 09/25/23, COLONOSCOPY, DR. BHARDWAJ 06/21/2019, Left hand carpal tunnel release 10/2023. * Hospitalization/Major Diagno stic Procedure: s ee above , [facility] ER- Right leg pain 09/11/12. * Family History: F ather: 78 yrs, diagnosed with Hypertension, Heart Disease, Cancer. M other: 74 yrs, diagnosed with Hypertension, Heart Disease, Stroke, Cancer. S iblings: alive, hypertension. 1 sister(s) . [...] tablet Orally Once a day , Taking Atorvastatin Calcium 20 MG Tablet ALTERNATE TAKING 20/40 MG TABLET BY MOUTH AT BEDTIME , Not-Taking hydroCHLOROthiazide 12.5 MG Tablet 1 tablet in the morning Orally Once a day , Discontinued Biotin 5 MG Tablet Disintegrating 1 tab(s) orally once a day , Discontinued Mucinex 600 MG Tablet Extended Release 12 Hour 1 tab(s) orally every 12 hours , Notes to Pharmacist: Pt takes 2 tablets, Discontinued Vitamin D3 50 MCG (1999 UT) Tablet 1 tab(s) orally once a day , Medication List reviewed and reconciled with the patient * Allergies: P enicillin, Cefuroxime: Dyspepsia, Cipro: kidney rupture. Objective: * Vitals: W t:146.8, Temp:98.3, BP:140/80, HR:65, Nurse:GENESIS, Ht: 59, BMI:29.65. * Examination: G eneral Examination: General Appearance: N AD. H EENT: u nremarkable.?Oral cavity: n o lesions, mucosa moist and WNL, no erythema. N nicole: s upple, no lymphadenopathy, thyroid enlarged on the right. C hest: n ormal shape and expansion. H eart: RSR. L ungs: c lear to auscultation. A bdomen: soft and nontender. N eurologic Exam: I ntact, gait normal.. S kin: n ormal, no rash. P eripheral pulses:?normal . E xtremities: t race l eg edema, Surgical scars of the palms. ? Assessment: * Assessment: 1. E ssential hypertension - I10 (Primary) 2 . T hyroid nodule - E04.1 3 . G astroesophageal reflux disease without esophagitis - K21.9 4 .?Mixed hyperlipidemia - E78.2 Plan: * Treatment: 2. M ixed hyperlipidemia Stop Atorvastatin Calcium Tablet, 20 MG, ALTERNATE TAKING 20/40 MG TABLET BY MOUTH AT BEDTIME. 3. O thers Start Atorvastatin Calcium Tablet, 40 MG, 1 tablet, Orally, as directed, 30 day(s), 90, Refills 1.? Notes: To alternate one (40mg) with 1/2 (20mg) * Procedure Codes: 3 077F SYST BP = 140 MM HG6 IT, 3079F DIAST BP 80-89 MM HG * Follow Up: 3 Months * Images: Billing Information: * Visit Code: 65331 Office Visit, Est Pt., Level 4. * Procedure Codes: 3077F SYST BP = 140 MM HG6 IT. 3079F DIAST BP 80-89 MM HG. * Electronic signature of Kaylene Boyd MD on 03/29/2025 at 02:16 PM EST Sign off status: Pending * Provider: Kaylene Boyd M.D. Date: 0 07/22/2024 Generated for Tyler espinoza/Venus/Amoritting on: 05/29/2024 02:16 PM EST History and Physical Notes * HPI (History of Present Illness) Category Sub-Category Detail Notes Category Not es Cardiology Short of Breath Chest Pain Palpitations Dizziness Examination Category Sub-Category Detail Notes Category Not es General Examination HEENT: unremarkable Heart: RSR Lungs: clear to auscultatio n Abdomen: soft and nontender Extremities: trace leg edema, Marzena gical scars of the palms General Appearance: NAD Skin: normal, no rash Neurologic Exam: Intact, gait normal. Neck: supple, no lymphaden opathy, thyroid enlarged on the right Oral cavity: no lesions, mucosa m oist and WNL, no erythema Peripheral pulses: normal Chest: normal shape and exp ansion
--- OUTSIDE RECORDS SUMMARY | 2024-11-21 10:30 | XMS_ITS ---
Author Organization [facility] Address [address] [place] [id number] Care Team Providers Care Rubber Engraver Name Role Phone Kaylene Boyd Primary Care Provider Joselyn Louie Unavailable [phone] Allergies Allergen (clinical drug ingredient) Drug/Non Drug Allergy documented on EMR Reaction Allergy Type Onset Date Status ciprofloxacin Cipro kidney rupture Drug Allergy Active cefuroxime Cefuroxime Dyspepsia Drug Allergy Activ e Penicillin Unknown Drug Allergy Active Results Component Value Reference Range Notes P-Comprehensive Metabolic Pa donte (CMP) Reviewed date:11/23/2024 01:06:42 PM Interpretation:Normal Performing Lab: Notes/Report: Test performed by [facility] [address] [place] [address] , [address], [place] [address] Kishor Pratt MD, Mechanical Shop Laborer CLIA: [id number] Sodium 138 135-145 mmol/L Potassium 4.3 3.5-5.3 mmol/L Chloride 100 97-108 mmol/L CO2 26 20-32 mmol/L Glucose 87 65-99 mg/dL BUN 20 6-20 mg/dL Creatinine 0.80 0.50-1.00 mg/dL Calcium 9.3 8.6-10.4 mg/dL eGFR by Creatinine 85 >59 mL/min/1.73m2 Protein 7.0 6.0-8.3 g/dL Albumin 4.7 3.5-5.3 g/dL Alkaline Phosphatase 111 35-121 IU/L ALT (SGPT) 14 <5-47 IU/L AST (SGOT) 15 <5-40 IU/L Bilirubin, Total 0.3 <0.2-1.2 mg/dL A/G Ratio 2.0 1.1-2.5 P-Magnesium Reviewed date:11/23/2024 01:06:42 PM Interpretation:Normal Performing Lab: Notes/Report: Test performed by [facility] [address] [place] [address] , [address], [place] [address] Kishor Pratt MD, Mechanical Shop Laborer CLIA: [id number] Magnesium 2.3 1.6-2.4 mg/dL REASON FOR VISIT 3 month f/u Medications Medication SIG (Take, Route, Frequency, Duration) Notes Start Date End Date Status Metoclopramide HCl 5 MG 1/2 Orally three times a day as needed; Duration: 30 day(s) 05/21/2023 Active CoQ10 100 MG orally once a day Active Omeprazole 40 MG 1 cap(s) orally once a day; Duration: 30 day(s) 06/29/2020 Active Multivitamin - 1 tablet Orally Once a day; Duration: 30 day(s) Active Losartan Potassium 25 MG Take 1 tablet b y mouth once daily; Duration: 90 days Active Mometasone Furoate 0.1 % 1 application E xternally Once a day 07/27/2023 Active hydroCHLOROthiazide 12.5 MG 1 tablet in the morning Orally Once a day; Duration: 90 days 07/27/2023 Active Atorvastatin Calcium 20 MG ALTERNATE MATTHEW ING 20MG AND 40MG BY MOUTH DAILY AT BEDTIME; Duration: 90 Active Vital Signs Blood pressure systolic 132 mm Hg 11/22/19 25 Blood pressure diastolic 82 mm Hg 025 Heart Rate 68 /min 11/21/2024 Height 59 in 11/21/2024 Weight 141 lbs 11/21/2024 BMI 28.48 kg/m2 11/21/2024 Encounters Encounter Location Date Provider Diagnosis [facility] [address] [place] [phone] 11/21/2024 Kaylene Boyd Essential hypertensi on I10 ; Fibrocystic breast disease (FCBD), unspecified laterality N60.19 and BMI 28.0-28.9,adult Z68.28 Assessments Encounter Date Diagnosis (ICD Code) Assessment Notes Treatment Notes Treatment Clinical Notes Section Notes 11/21/2024 Essential hypertension (ICD-10 - I10) 11/21/2024 Fibrocystic breast disease (FCBD), unspecified laterality (ICD-10 - N60.19) 11/21/2024 BMI 28.0-28.9,adult (ICD-10 - Z68.28) Plan Of Treatment Medication Medication Name Sig Start Date Stop Date Notes Losartan Potassium 25 MG Take 1 tablet b y mouth once daily; Duration: 90 days hydroCHLOROthiazide 12.5 MG 1 tablet in the morning Orally Once a day; Duration: 90 days 07/27/2023 Next Appt Details Follow Up: 6 Months, Reason: Provider Name:Kaylene Raymond er, 05/29/2025 09:30:00 AM, [address] [facility], [address], [place], [place], [phone], Progress Notes * DELORES OHDIOMEDESOB:[birth year] (60 yo F)Acc No.[id number]:11/21/2024 Progress Notes Patient: DELORES CARDONA Provider: Kaylene Boyd M.D. :1965 A ge:59 Y S ex:Female Date:11/21/2024 Address:[address] [place] [address] [address] [place], [id number] Subjective: * Chief Complaints: * 1 . 3 month f/u. * HPI: C ardiology: Pt here to f/u on blood pressure. Pt states she has not been checking it at home. A ntepartum: Pt states she had an Mammogram a few mouths ago and everything was okay but she is having pain in her left breast. See pt docs. C onstitutional: Just retired. * ROS: D ERMATOLOGY: no R rudy. [...] Diagno stic Procedure: s ee above , [facility] ER- Right leg pain 09/11/12. * Family History: F ather: 78 yrs, diagnosed with Cancer, Hypertension, Heart Disease. M other: 74 yrs, diagnosed with Cancer, Hypertension, Stroke, Heart Disease. S iblings: alive, hypertension. 1 sister(s) . [...] application Externally Once a day , Taking hydroCHLOROthiazide 12.5 MG Tablet 1 tablet in the morning Orally Once a day , Taking Atorvastatin Calcium 20 MG Tablet ALTERNATE TAKING 20MG AND 40MG BY MOUTH DAILY AT BEDTIME , Taking Losartan Potassium 25 MG Tablet Take 1 tablet by mouth once daily , Medication List reviewed and reconciled with the patient * Allergies: P enicillin, Cefuroxime: Dyspepsia, Cipro: kidney rupture. Objective: * Vitals: W t: 141, Temp: 98.2, BP: 132/82, HR: 68, Nurse: BRETT/JUAN RAMON, Ht: 59, BMI:28.48. * Examination: G eneral Examination: General Appearance: [...] ssential hypertension - I10 (Primary) 2 . F ibrocystic breast disease (FCBD), unspecified laterality - N60.19 3 . B IL 28.0-28.9,adult - Z68.28 ? Plan: * Treatment: Value Reference Range A /G Ratio 2.0 1.1-2.5 - * A lbumin 4.7 3.5-5.3 - g/dL * A lkaline Phosphatase 111 35-121 - IU/L * A LT (SGPT) 14 <5-47 - IU/L * A ST (SGOT) 15 <5-40 - IU/L * B ilirubin, Total 0.3 <0.2-1.2 - mg/dL * B UN 20 6-20 - mg/dL * C alcium 9.3 8.6-10.4 - mg/dL * C hloride 100 97-108 - mmol/L * C O2 26 20-32 - mmol/L * C reatinine 0.80 0.50-1.00 - mg/dL * G lucose 87 65-99 - mg/dL * P otassium 4.3 3.5-5.3 - mmol/L * S odium 138 135-145 - mmol/L * P rotein 7.0 6.0-8.3 - g/dL * e GFR by Creatinine 85 >59 - mL/min/1.73m2 * Cami Cooley 11/23/2024 01: 06:24 PM EDT > Patient informed of normal results. ?LAB: P-Magnesium (Collection Date & Time - 11/21/2024 04:45 PM)?Normal* Value Reference Range M agnesium 2.3 1.6-2.4 - mg/dL * Cami Cooley 11/23/2024 01: 06:24 PM EDT > Patient informed of normal results. * Procedure Codes: 1 036F TOBACCO NON-USER, G8420 BMI<30 AND >=22 CALC & DOCU, G8950 PREHTN/HTN BP DOC INDCD F/U DOC, G8752 MOST RECENT SYSTOLIC BP < 140MM HG, G8754 MOST RECENT DIASTOLIC BP < 90MM HG * Follow Up: 6 Months * Images: Billing Information: * Visit Code: 29223 Office Visit, Est Pt., Level 4. * Procedure Codes: 1036F TOBACCO NON-USER. G8420 BMI<30 AND >=22 CALC & DOCU. G8950 PREHTN/HTN BP DOC INDCD F/U DOC. G8752 MOST RECENT SYSTOLIC BP < 140MM HG. G8754 MOST RECENT DIASTOLIC BP < 90MM HG. * Electronic signature of Kaylene Boyd MD on 03/29/2025 at 02:17 PM EST Sign off status: Pending * Provider: Kaylene Boyd M.D. Date: 0 11/21/2024 Generated for Tyler espinoza/Venus/eTransmitting on: 05/29/2024 02:17 PM EST History and Physical Notes * HPI (History of Present Illness) Category Sub-Category Detail Notes Category Not es Constitutional Just retired Examination Category Sub-Category Detail Notes Category Not [...]
--- OUTSIDE RECORDS SUMMARY | 2025-03-22 04:15 | XMS_ITS ---
Author Organization [facility] Address [address] [place] [id number] Care Team Providers Care Health And Safety Trainer Name Role Phone Kaylene Boyd Primary Care Provider [phone] Joselyn Louie Unavailable [phone] Therese Mccabe Unavailable [phone] Allergies Allergen (clinical drug ingredient) Drug/Non Drug Allergy documented on EMR Reaction Allergy Type Onset Date Status ciprofloxacin Cipro kidney rupture Drug Allergy Active cefuroxime Cefuroxime Dyspepsia Drug Allergy Activ e Penicillin Unknown Drug Allergy Active Results Component Value Reference Range Notes P-Pap Test Thin Prep Reviewed date:03/24/2025 02:17:50 PM Interpretation: Performing Lab: Notes/Report: Pap Test Thin Prep Negative for Intraepithelial Lesion or Malignancy Source: Cervical/Endocervical LMP: 5 years ago Date Taken: 03/22/2025 Specimen Type: ThinPrep Vial Date Reported: 03/24/2025 Clinical Data: Annual Screening Last Pap: Normal (04/03/2022) Cytotech: TATYANA Ku(ASCP) Date Reported: 03/24/2025 Specimen Adequacy: Satisfactory for evaluation Endocervical/transformati on zone component present General Categorization: NEGATIVE FOR INTRAEPITHELIAL LESION OR MALIGNANCY This specimen has been analyzed by the ThinPrep Imaging System, an interactive computer system which assists the lab in the screening of ThinPrep Pap Test slides. Following imaging, the slide was reviewed by a Vineyardist and/or Pathologist. Cervical cytology is a screening test primarily for squamous cancers and precursors and has associated false-negative and false-positive results. New technologies such as liquid-based preparations may decrease but will not eliminate all false-negative results. Regular sampling and follow-up of unexplained clinical signs and symptoms are recommended to minimize false negative results. End of Report Technical services provided by [facility], [facility], d/b/a [address] , [place] [address] Rogerio Bolden MD, Conversion Developer. Case reviewed and diagnosis rendered at [facility], [facility], d/b/a [address] , [place] [address] Rogerio Bolden MD, Conversion Developer. CONFIDENTIAL REASON FOR VISIT pap, Needs colon cancer screening Medications Medication SIG (Take, Route, Frequency, Duration) Notes Start Date End Date Status CoQ10 100 MG orally once a day Active Estradiol 0.01 % one applicator full Vaginal twice a week, prn 03/22/2025 Active Losartan Potassium 25 MG Take 1 tablet b y mouth once daily; Duration: 90 days Active Atorvastatin Calcium 20 MG ALTERNATE MATTHEW ING 20MG AND 40MG BY MOUTH DAILY AT BEDTIME; Duration: 90 Active hydroCHLOROthiazide 12.5 MG 1 tablet in the morning Orally Once a day; Duration: 90 days 07/27/2023 Active Immunizations Vaccine Route Administration Date Status Comme nts Fluzone Quad (6months&older) IM Intramuscular 03/22/2025 P ending Problems Problem Type SNOMED Code ICD Code Onset Dates Problem Status W/U Status Risk Notes Problem Atrophy of vagina (457563846) Vaginal atrophy (N95.2) Active confirmed Vital Signs Blood pressure systolic 128 mm Hg 03/22/20 25 Blood pressure diastolic 76 mm Hg 025 Heart Rate 76 /min 03/22/2025 Height 59 in 03/22/2025 Weight 143 lbs 03/22/2025 BMI 28.88 kg/m2 03/22/2025 Encounters Encounter Location Date Provider Diagnosis [facility] [address] [place], [place] [id number] 03/22/2025 Therese Mccabe Cervical cancer screening Z12.4 ; Pain, joint, knee, left M25.562 ; Vaginal atrophy N95.2 ; Mass of upper outer quadrant of left breast N63.21 and Encounter for immunization Z23 Assessments Encounter Date Diagnosis (ICD Code) Assessment Notes Treatment Notes Treatment Clinical Notes Section Notes 03/22/2025 Cervical cancer screening (ICD-10 - Z12.4) 03/22/2025 Pain, joint, knee, left (ICD-10 - M25.562) Patient will call back if she would like an x-ray. 03/22/2025 Vaginal atrophy (ICD-10 - N95.2) 03/22/2025 Mass of upper outer quadrant of left breast (ICD-10 - N63.21) 03/22/2025 Encounter for immunization (ICD-10 - Z23) Plan Of Treatment Medication Medication Name Sig Start Date Stop Date Notes Estradiol 0.01 % one applicator full Vaginal twice a week, prn 03/22/2025 Treatment Notes Assessment Notes Pain, joint, knee, left Patient will pb l back if she would like an x-ray. Pending Test Test Name Order Date Ultrasound : Breast, left 03/22/2025 Next Appt Details Follow Up: via phone to repo rt test results, Reason: Provider Name:Kaylene Raymond er, 05/29/2025 09:30:00 AM, [address] [facility] [address], [place], [place], [id number], Progress Notes * DELORES QUIÑONEZOB:[birth year] (60 yo F)Acc No.[id number]:03/22/2025 Progress Notes Patient: DELORES CARDONA Provider: YU Arellano :1965 A ge:60 Y S ex:Female Date:03/22/2025 Address:[address] [place] [address] [address], [place], [id number] Pcp:Kaylene Boyd Subjective: * Chief Complaints: * 1 . Pap. 2. Needs colon cancer screening. * HPI: K nee/Boland: 60 year old female presents with c/o knee pain P t states she has been having left knee pain for few weeks. G YN: c/o routine pap smear P t here for a pap today . * ROS: D ERMATOLOGY: no R rudy. n o H summer. G ASTROENTEROLOGY: no N ausea. n o V omiting. n o D iarrhea.? U ROLOGY: no D ifficulty urinating. n o B lood in urine. * Medical History: H ypercholestrolemia, Interstitial cystitis. * Instrumentation Designer History: P eriods : e very 28 days. H /O Sexual activity c urrently sexually active. L ast pap smear date . H /O Last mammogram date . H /O Abnormal pap smear r epeat was normal. D ate of Last Period e Feb 2010. D enies H/O STD. D enies H/O control. * OB History: T otal pregnancies 0 . * Surgical History: u rethral dilitation , wisdom teeth removed , colonoscopy 01/2010, urethral dialation , Right Hand Carpal Tunnel Release - Dr. Chou 09/25/23, COLONOSCOPY, DR. BHARDWAJ 06/21/2019, Left hand carpal tunnel release 10/2023. * Hospitalization/Major Diagno stic Procedure: s ee above , [facility] ER- Right leg pain 09/11/12. * [...] ouside US: no. * Medications: T aking CoQ10 100 MG Capsule orally once a day , Taking Atorvastatin Calcium 20 MG Tablet ALTERNATE TAKING 20MG AND 40MG BY MOUTH DAILY AT BEDTIME , Taking hydroCHLOROthiazide 12.5 MG Tablet 1 tablet in the morning Orally Once a day , Taking Losartan Potassium 25 MG Tablet Take 1 tablet by mouth once daily , Discontinued Multivitamin - Tablet 1 tablet Orally Once a day , Discontinued Omeprazole 40 MG Capsule Delayed Release 1 cap(s) orally once a day , Discontinued Metoclopramide HCl 5 MG Tablet 1/2 Orally three times a day as needed , Discontinued Mometasone Furoate 0.1 % Cream 1 application Externally Once a day , Medication List reviewed and reconciled with the patient * Allergies: P enicillin, Cefuroxime: Dyspepsia, Cipro: kidney rupture. Objective: * Vitals: W t: 143, Temp: 98.5, BP: 128/76, HR: 76, Nurse: abdiel, Ht: 59, BMI:28.88. * Examination: G eneral Examination: General Appearance: N AD. H EENT: u nremarkable.?Oral cavity: n o lesions, mucosa moist and WNL, no erythema. N nicole: s upple, no lymphadenopathy. C hest: n ormal shape and expansion. H eart: R SR. L ungs: c lear to auscultation. A bdomen: b owel sounds present, soft and nontender. N eurologic Exam: I ntact, gait normal. S kin: n ormal, no rash. P eripheral pulses: n ormal (2+) bilaterally. E xtremities: n o leg edema. G YN: External genitalia n ormal. U rethra: m eatus normal. V agina: n ormal, no lesions, healthy pink mucosa without any lesions. C ervix: n ormal appearing, no lesions, Sure Path PAP obtained. U terus: n ormal size, shape and consistency, normal mobility, nontender. A dnexa: n ormal, no masses. R ectal exam: n ormal, no masses. B reasts: n ormal, a few masses present in the left upper out quadrant. ? Assessment: * Assessment: 1. C ervical cancer screening - Z12.4 (Primary) 2 . P ain, joint, knee, left - M25.562 3 . V aginal atrophy - N95.2 4 . M ass of upper outer quadrant of left breast - N63.21 5 . E ncounter for immunization - Z23? Plan: * Treatment: Value Reference Range P ap Test Thin Prep Negative for Intraepithelial Lesion or Malignancy - * Therese Mccabe 03/24/2025 02:17:44 PM EDT >see TE 2.?Pain, joint, knee, left? Notes: Patient will call back if she would like an x-ray.??3.?Vaginal atrophy? Start Estradiol Cream, 0.01 %, one applicator full, Vaginal, twice a week, prn, 41.5 grams, Refills1.??4.?Mass of upper outer quadrant of left breast?Imaging: Ultrasound : Breast, left* Brittney Richardson 03/22/2025 02: 12:36 PM EDT > faxed to [facility] Scheduling * Immunizations: Fluzone Quad (6months&older) : 0.5 mL (Route: Intramuscular) given by GARLAND Strickland , Tanker Service Attendant on Left Deltoid (Pending) (Encounter for immunization) * Follow Up: v ia phone to report test results * Images: Billing Information: * Visit Code: 30979 Preventive Care Est Pt Age 40-64. Modifiers: 91852 Office Visit, Est Pt., Level 3. * Procedure Codes: * Electronic signature of YU Bunrs on 03/29/2025 at 02:16 PM EST Sign off status: Pending * Provider: YU Arellano Date: Generated for Tyler espinoza/Venus/eTransmitting on: 05/29/2024 02:16 PM EST History and Physical Notes * HPI (History of Present Illness) Category Sub-Category Detail Notes Category Not es BEER MAKER routine pap smear Pt here for a pap today Knee/Boland knee pain Pt states she ingram s been having left knee pain for few weeks Examination Category Sub-Category Detail Notes Category Not es General Examination HEENT: unremarkable Heart: RSR Lungs: clear to auscultatio n Abdomen: bowel sounds present , soft and nontender Extremities: no leg edema General Appearance: NAD Skin: normal, no rash Neurologic Exam: Intact, gait normal Neck: supple, no lymphaden opathy Oral cavity: no lesions, mucosa m oist and WNL, no erythema Peripheral pulses: normal (2+) bilatera lly Chest: normal shape and exp ansion BEER MAKER Cervix: normal appearing, no lesions , Sure Path PAP obtained Vagina: normal, no lesions, healthy pink mucosa without any lesions Uterus: normal size, shape a nd consistency, normal mobility, nontender Adnexa: normal, no masses Urethra: meatus normal Rectal exam: normal, no masses Breasts: normal, a few masses present in the left upper out quadrant External genitalia normal
--- OUTSIDE RECORDS SUMMARY | 2025-03-29 14:17 | XMS_ITS | Patient Health Record ---
Author Organization [facility] Address [address] [place] [id number] Care Team Providers Care Shell Core And Molding Supervisor Name Role Phone Kaylene Boyd Primary Care Provider [phone] Joselyn Louie Unavailable [phone] Marilyn Sorensen Unavailable [phone] Kelin Barker Unavailable [phone] Therese Mccabe Unavailable [phone] Allergies Allergen (clinical drug ingredient) Drug/Non Drug Allergy documented on EMR Reaction Allergy Type Onset Date Status ciprofloxacin Cipro kidney rupture Drug Allergy Active cefuroxime Cefuroxime Dyspepsia Drug Allergy Activ e Penicillin Unknown Drug Allergy Active Results Component Value Reference Range Notes P-Comprehensive Metabolic Pa donte (CMP) Reviewed date:07/04/2024 10:00:43 AM Interpretation: Normal Performing Lab: Notes/Report: Test performed by [facility] , [address], [place] [address] Kishor Pratt MD, Stone Mill Operator CLIA: [id number] Sodium 144 135-145 mmol/L Potassium 4.4 3.5-5.3 [...] 207 Performing Lab: Notes/Report: Test performed by [facility], [address] , [address], [place] [address] Kishor Pratt MD, Stone Mill Operator CLIA: [id number] Cholesterol 207 <200 mg/dL Triglycerides 67 <150 [...] ATPIII guidelines LDL/HDL Ratio 0.9 <3.3 Ratio ____ LDL Cholesterol Patient History ____ Test Date: 10/16/2023 LDL Results: 82 Units: mg/dL % Change: - ---- Test Date: 07/02/2024 LDL Results: 91 Units: mg/dL % Change: +10% ____ P-Pap Test Thin Prep Reviewed date:03/24/2025 02:17:50 PM Interpretation: Performing Lab: Notes/Report: Pap Test Thin Prep Negative for Intraepithelial Lesion or Malignancy LMP: 5 years ago Date Taken: 03/22/2025 Specimen Type: ThinPrep Vial Date Reported: 03/24/2025 Clinical Data: Annual Screening Last Pap: Normal (04/03/2022) Cytotech: TATYANA Ku(ASCP) Date Reported: 03/24/2025 Specimen Adequacy: Satisfactory for evaluation Endocervical/transforma tion zone component present General Categorization: NEGATIVE FOR INTRAEPITHELIAL LESION OR MALIGNANCY This specimen has been analyzed by the ThinPrep Imaging System, an interactive computer system which assists the lab in the screening of ThinPrep Pap Test slides. Following imaging, the slide was reviewed by a Occupational Health Professional and/or Pathologist. Cervical cytology is a screening test primarily for squamous cancers and precursors and has associated false-negative and false-positive results. New technologies such as liquid-based preparations may decrease but will not eliminate all false-negative results. Regular sampling and follow-up of unexplained clinical signs and symptoms are recommended to minimize false negative results. End of Report Technical services provided by [facility], [facility], d/b/a [address] , [place] [address] Rogerio Bolden MD, Stone Mill Operator. Case reviewed and diagnosis rendered at [facility], [facility], d/b/a [address] , [place] [address] Rogerio Bolden MD, Stone Mill Operator. CONFIDENTIAL Source: Cervical/Endocervical Mammogram Reviewed date:09/21/2024 04:58:12 PM Interpretation:Negative Performing Lab: Notes/Report: Negative P-Comprehensive Metabolic Pa donte (CMP) Reviewed date:11/23/2024 01:06:42 PM Interpretation:Normal Performing Lab: Notes/Report: CLIA: [id number] Kishor Pratt MD, Stone Mill Operator [address] [place] [address] , [address], [place] [address] Test performed by [facility] Sodium 138 135-145 mmol/L Potassium 4.3 3.5-5.3 [...] Interpretation:Normal Performing Lab: Notes/Report: Test performed by [facility] [address] [place] [address] , [address], [place] [id number] Kishor Pratt MD, Stone Mill Operator CLIA: [id number] Magnesium 2.3 1.6-2.4 mg/dL Reason For Referral No Information Medications Medication SIG (Take, Route, Frequency, Duration) Notes Start Date End Date Status CoQ10 100 MG orally once a day Active Estradiol 0.01 % 1 gram Vaginal twice a week Active Losartan Potassium 25 MG Take 1 tablet b y mouth once daily; Duration: 90 days Active Atorvastatin Calcium 20 MG ALTERNATE MATTHEW ING 20MG AND 40MG BY MOUTH DAILY AT BEDTIME; Duration: 90 Active hydroCHLOROthiazide 12.5 MG 1 tablet in the morning Orally Once a day; Duration: 90 days 07/27/2023 Active Immunizations Vaccine Route Administration Date Status Comme nts xFlu shot-36 months and older IM Intramuscular 05/07/2006 Administered Tetanus Tdap-Adacel (over 7yrs) IM Intramuscular 12/01/2008 Administered Tetanus Tdap-Adacel (over 7yrs) IM Intramuscular 01/18/2019 Administered Shingrix IM Intramuscular 04/03/2022 Administered Shingrix IM Intramuscular 08/28/2022 Administered Hepatitis A (adult) Unknown 05/11/2018 Administered Fluzone Quad (6months&older) IM Intramuscular 03/17/2024 Administered Fluzone Quad (6months&older) IM Intramuscular 03/22/2025 Pending DT, 7 YEARS OR OLDER Unknown 07/30/1996 Administered COVID 19 Sandra Unknown 09/28/2020 Administered Problems Problem Type SNOMED Code ICD Code Onset Dates Problem Status W/U Status Risk Notes Problem Palpitations (44554368) Palpitations (R00.2) Active confirmed Problem Hyperlipidemia (99748553) Hyperlipidemia (E78.5) Active confirmed Problem Vitamin D deficiency (43982207) Vitamin D deficiency (E55.9) Active confirmed Problem Vitamin B12 deficiency (995255244) Vitamin B12 deficiency (E53.8) Active confirmed Problem Essential hypertension (09626613) Essential hypertension (I10) Active confirmed Problem Mixed hyperlipidemia (700776088) Mixed hyperlipidemia (E78.2) Active confirmed Problem Thyroid nodule (498585706) Thyroid nodule (E04.1) Active confirmed Problem Constipation (60340810) Constipation, unspecified constipation type (K59.00) Active confirmed Problem Gastroesophageal reflux disease without esophagitis (720577181) Gastroesophageal reflux disease without esophagitis (K21.9) Active confirmed Problem Atrophy of vagina (721425290) Vaginal atrophy (N95.2) Active confirmed Problem Bilateral carpal tunnel syndrome (32565687882251381) Bilateral carpal tunnel syndrome (G56.03) Active confirmed Problem Fibrocystic breast changes (60728571) Fibrocystic breast disease (FCBD), unspecified laterality (N60.19) Active confirmed Problem Esophageal dysphagia (46959765) Esophageal dysphagia (R13.19) Active confirmed Vital Signs Heart Rate 76 /min 03/22/2025 Blood pressure diastolic 76 mm Hg 03/22/2025 Height 59 in 03/22/2025 Blood pressure systolic 128 mm Hg 03/22/2025 Weight 143 lbs 03/22/2025 BMI 28.88 kg/m2 03/22/2025 Encounters Encounter Location Date Provider Diagnosis [facility] [address] [facility] [address] [place], [place] [id number] 07/02/2024 Kelin Royalton Essential hypertensi on I10 and Hyperlipidemia E78.5 [facility] [address] [facility] [address] [place], [place] [id number] 07/22/2024 J Alejandro Boyd Essential hypertensi on I10 ; Thyroid nodule E04.1 ; Gastroesophageal reflux disease without esophagitis K21.9 and Mixed hyperlipidemia E78.2 [facility] [address] [facility] [address] [place], [place] [id number] 11/21/2024 J Alejandro Boyd Essential hypertensi on I10 ; Fibrocystic breast disease (FCBD), unspecified laterality N60.19 and BMI 28.0-28.9,adult Z68.28 [facility] [address] [facility] [address] [place], [place] [id number] 03/22/2025 Thereseric Mccabe Cervical cancer scre ening Z12.4 ; Pain, joint, knee, left M25.562 ; Vaginal atrophy N95.2 ; Mass of upper outer quadrant of left breast N63.21 and Encounter for immunization Z23 [facility] [address] [facility] [address] [place], [place] [id number] 04/28/2024 J Alejandro Boyd Mixed hyperlipidemia E78.2 [facility] [address] [facility] [address] [place], [place] [id number] 06/30/2024 J Alejandro Oliver [facility] [address] [facility] [address] [place] [id number] 07/04/2024 J Alejandro Oliver [facility] [address] [facility] [address] [place], [place] [id number] 10/28/2024 J Alejandro Oliver [facility] [address] [facility] [address] [place], [place] [id number] 12/06/2024 J Alejandro Oliver [facility] [address] [facility] [address] [place], [place] [id number] 01/25/2025 J Alejandro Boyd Essential hypertensi on I10 [facility] [address] [facility] [address] [place] [id number] 03/24/2025 Therese Mccabe Assessments Encounter Date Diagnosis (ICD Code) Assessment Notes Treatment Notes Treatment Clinical Notes Section Notes 04/28/2024 Mixed hyperlipidemia (ICD-10 - E78.2) 07/02/2024 Essential hypertension (ICD-10 - I10) 07/22/2024 Essential hypertension (ICD-10 - I10) 07/22/2024 Thyroid nodule (ICD-10 - E04.1) 11/21/2024 Essential hypertension (ICD-10 - I10) 11/21/2024 Fibrocystic breast disease (FCBD), unspecified laterality (ICD-10 - N60.19) 01/25/2025 Essential hypertension (ICD-10 - I10) 03/22/2025 Cervical cancer screening (ICD-10 - Z12.4) 03/22/2025 Pain, joint, knee, left (ICD-10 - M25.562) Patient will call back if she would like an x-ray. 03/22/2025 Vaginal atrophy (ICD-10 - N95.2) 11/21/2024 BMI 28.0-28.9,adult (ICD-10 - Z68.28) 07/22/2024 Gastroesophageal reflux disease without esophagitis (ICD-10 - K21.9) 07/02/2024 Hyperlipidemia (ICD-10 - E78.5) 07/22/2024 Mixed hyperlipidemia (ICD-10 - E78.2) 03/22/2025 Mass of upper outer quadrant of left breast (ICD-10 - N63.21) 03/22/2025 Encounter for immunization (ICD-10 - Z23) 07/22/2024 Other To alternate one (40mg) with 1/2 (20mg) Plan Of Treatment Pending Test Test Name Order Date Ultrasound : Breast, left 03/22/2025 Next Appt Details Provider Name:Kaylene Raymond er, 05/29/2025 09:30:00 AM, [address] [facility] [address] [facility], [address], [place], [id number], Insurance Providers Payer Name Payer Address Payer Phone Subscriber Number Group Number Insured Name Patient Relationship to Insured Coverage Start Date Coverage End Date [employer] [address] [place] [address] [id number] CURTIS Spouse - patient is the spouse of the insured Medications Administered Medication Instructions Date of Administration Dosage Notes Dexamethasone 10/02/2006 1 mL Medical (General) History Medical History History ICD Code hypercholestrolemia Interstitial cystitis Surgical History Surgery Date(Month/Year) urethral dilitation wisdom teeth removed colonoscopy 01/2010 urethral dialation Right Hand Carpal Tunnel Release - Dr. Cammy woody 09/25/23 COLONOSCOPY, DR. BHARDWAJ 06/21/2019 Left hand carpal tunnel release 10/2023 Hospitalization History Reason Date(Month/Year) [facility] ER- Right leg pain 09/11/12 see above
--- NOTE | 2025-03-29 14:28 | US_ITS ---
PROCEDURE INFORMATION: Exam: US Left Breast, Complete Exam date and time: 03/29/2025 2:15 PM Age: 60 years old Clinical indication: Breast pain; Left; palpable abnormality 12 o'clock axis TECHNIQUE: Imaging protocol: Complete ultrasound of all four quadrants of the left breast and the retroareolar regions, including ultrasound of the axilla when performed. COMPARISON: MG MM DIG SCREENING MAMM BI W/CAD 09/12/2024 4:58 PM FINDINGS: ULTRASOUND: Breast ultrasound findings: Sonographic images of the --- breast including the retroareolar region, all 4 quadrants and the axilla do not demonstrate any solid or cystic masses. No architectural distortion or acoustical shadowing. No skin thickening or axillary adenopathy. IMPRESSION: A skin marker should be placed over the area of palpable concern followed by a diagnostic unilateral mammogram with spot compression views for full evaluation of the patient's complaint of a palpable abnormality. ASSESSMENT: BI-RADS Category 0: Incomplete- Need Additional Imaging Evaluation
== END 2025-03-29 23:59 | disposition home or self-care (01) ==
LOC: RAD 14:14
PROVIDERS: PCP Family Medicine; Visit Provider Physician Assistant
DX: N63.21 Unspecified lump in the left breast, upper outer quadrant (principal)
CPT/HCPCS: 76641

== ENCOUNTER 2025-05-03 10:25 | Outpatient (CLI) | payer BC, SELFPAY ==
--- NOTE | 2025-05-03 10:30 | MM_ITS ---
PROCEDURE INFORMATION: Exam: MG Left Diagnostic Breast Tomosynthesis Exam date and time: 05/03/2025 10:32 AM Age: 60 years old Clinical indication: Palpable abnormality in the left breast TECHNIQUE: Imaging protocol: Left Diagnostic tomosynthesis and 2D mammography including computer-aided detection (CAD) when performed. Unilateral or bilateral exam. COMPARISON: 1. MG MM DIG SCREENING MAMM BI W/CAD 09/12/2024 4:58 PM 2. MG MM DIG SCREENING MAMM BI W/CAD 05/15/2023 1:39 PM FINDINGS: MAMMOGRAPHY: Breast composition: There are scattered areas of fibroglandular density. Breast mammogram findings: There is no stellate mass, architectural distortion or suspicious microcalcifications to suggest malignancy. No skin thickening or axillary adenopathy. A skin marker was placed over an area of palpable concern in the left 12 o'clock axis. No suspicious findings on routine or spot compression views. Review of the patient's sonogram dated 03/29/2025 did not demonstrate any suspicious findings IMPRESSION: Palpable abnormality in the left breast corresponds both mammographically and sonographically to normal fibroglandular structures. There is no mammographic evidence of malignancy. Further evaluation of a palpable abnormality should be based on clinical grounds regardless of radiographic findings or lack thereof. Annual mammographic screening is recommended unless otherwise clinically indicated. ASSESSMENT: BI-RADS Category 1: Negative.
== END 2025-05-03 23:59 | disposition home or self-care (01) ==
LOC: RAD 10:25
PROVIDERS: PCP Family Medicine; Visit Provider Physician Assistant
DX: R92.2 Inconclusive mammogram (principal); R92.322 Mammographic fibroglandular density, left breast
CPT/HCPCS: 77061; 77065; G0279